=== PATIENT | male | born 1975 | race African-American/Black ===

== ENCOUNTER 2017-09-06 18:49 | Emergency (ER) | payer OTHER ==
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
[2017-09-06 19:53] LABS: PLATELET COUNT 259 10^3/uL (150-400)
[2017-09-07 11:14] VITALS: BP 143/99
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
--- NOTE | 2017-09-07 13:49 | ASMTTCLDSP ---
[facility] Discharge Disposition Disposition: Answers: Discharge If Answers: Yes DISCHARGED: Patient/family given suicide hotline info & SAMHSA brochure? Disposition Notes: Notes: IN CONSULTATION WITH [facility] ED PHYSICIAN, BELIA CARREON MD, AND ON-CALL PSYCHIATRIST, LAURA LEON MD, BOTH CONCURRED THAT PT DOES NOT APPEAR TO MEET 27-65 CRITERIA REQUIRING PSYCHIATRIC HOSPITALIZATION PT DOES NOT APPEAR TO BE AN IMMINENT RISK OF HARM TO SELF/OTHERS/GRAVELY DISABLED DUE TO A MENTAL ILLNESS CONDITION. Discharge Concerns/Recommendations: Notes: Recommended pt. f/u with local MHC at [facility]. Pt does not have an assigned provider. He was last prescribed meds by his Psychiatrist while an inpt at [facility] earlier this month. PT WAS OFFERED VOLUNTARY MENTAL HEALTH ADMISSION YET PT DECLINED. PT STATED COMMITMENT OR ABILITY TO KEEP SELF SAFE, DENIED THOUGHTS OF SELF HARM OR HARM TO OTHERS. PT EXPRESSED A DESIRE TO F/U WITH P. Date Signed: 09/07/2017 01:49 PM Electronically Signed By:Vanita Torres
== END 2017-09-07 11:13 | disposition home or self-care (01) ==
LOC: EEVIPCON 18:49
PROC: GZ11ZZZ Psychological Tests, Personality and Behavioral (ICD-10-PCS; principal; 2017-09-06)
DX: R45.851 Suicidal ideations (principal); I10 Essential (primary) hypertension; F17.200 Nicotine dependence, unspecified, uncomplicated; F19.10 Other psychoactive substance abuse, uncomplicated
CPT/HCPCS: 80305; G0480

== ENCOUNTER 2017-09-10 15:59 | Emergency (ER) | payer OTHER, MEDICAID ==
[~2017-09-10 15:59] MED LIST: LISINOPRIL 5 MG TAB PO SCH
[2017-09-10] MEDS ORDERED: LISINOPRIL 20 MG TAB PO ONE ×2 (16:13→16:17)
--- NOTE | 2017-09-10 16:17 | EDPHY ---
H & P Time Seen by Provider: 09/10/17 16:06 HPI/ROS: Chief Complaint: Hypertension HPI: 42-year-old male who is being seen at the crisis Center for restarting his chronic psychiatric medications. He is noted to be hypertensive there and sent here for medical clearance. Patient states he normally takes lisinopril once a day but has not been able date take his medications for the last week or so. Denies headache. Denies chest pain shortness of breath. States his last alcoholic drink was about 4 days ago. No nausea or vomiting. Currently is without any other complaints at this time. ROS: 10 point Review of Systems is negative except as noted in the HPI. PMH: Hypertension, PTSD, anxiety Social History: No smoking, occasional alcohol, denies other drug use Family History: non-contributory Physical Exam: Gen: Awake, Alert, No Distress HEENT: Nose: no rhinorrhea Eyes: PERRLA, EOMI Mouth: Moist mucosa Neck: Supple, no JVD Chest: nontender, lungs clear to auscultation Heart: S1, S2 normal, no murmur Abd: Soft, non-tender, no guarding Back: no CVA tenderness, no midline tenderness Ext: no edema, non-tender Skin: no rash Neuro: CN II-XII intact, Sensation grossly intact, Strength 5/5 in bilateral upper and lower extremities - Medical/Surgical History Hx Asthma: No Hx Chronic Respiratory Disease: No Hx Diabetes: No Hx Cardiac Disease: No Hx Renal Disease: No Hx Cirrhosis: No Hx Alcoholism: No Hx HIV/AIDS: No Hx Splenectomy or Spleen Trauma: No Other PMH: ptsd,schizophrenia,depression, anxiety,htn. denies surgical history - Social History Smoking Status: Current every day smoker Allergies/Adverse Reactions: No Known Allergies Allergy (Unverified 03/16/12 20:24) Home Medications: Medication Instructions Recorded Lisinopril [Zestril 5 mg (*)] 03/16/12 QUETIAPINE FUMARATE [Seroquel Xr] 300 mg PO 03/16/12 Diazepam 06/15/14 Lisinopril 5 mg PO DAILY #30 tablet 09/10/17 Medical Decision Making ED Course/Re-evaluation: Patient's blood pressure here is 142/104. He is without complaint. I have dosed him with lisinopril here. Will write prescription for the same. He is otherwise medically cleared for the crisis center. Departure - Departure Disposition: Home, Routine, Self-Care Clinical Impression: Hypertension Condition: Good Instructions: Hypertension (ED) Additional Instructions: Follow up with the [facility] in 3-4 days for blood pressure check. Make sure you take her regular medications daily. Return to the emergency department for headache, chest pain, shortness of breath , lightheadedness, fainting, or any other concerns. The patient is medically cleared for crisis Center. Referrals: [facility],. [Clinic] - As per Instructions Prescriptions: Lisinopril 5 mg PO DAILY #30 tablet
[2017-09-10 16:57] LABS: PLATELET COUNT 355 10^3/uL (150-400)
[2017-09-10 17:38] VITALS: BP 144/110
--- NOTE | 2017-09-10 17:39 | ASMTCMCOM ---
CM Note CM Note Notes: Pt presented to the ED from [facility] for high blood pressure. Pt was given Lisinopril while in the ED and also provided a filled prescription via MAP. Pt states he used to be seen at [facility] the [facility] but it has more than a year. This CM offered to call [facility] and get him an appt but pt states he will reach out to them. This CM to follow up with [facility] tomorrow and see if they can reach out to patient and schedule a follow-up. After speaking w/ Scott at [facility] ([phone]), it then was communicated that they were wanting the ED to run blood work and a urine sample for med clearance because they are looking for placement for patient (pt has already been evaluated). ED provider agreeable to this plan; lab results faxed over to [facility] (F: [phone]). Pt discharged and provided a cab voucher back over to [facility] to wait for placement. CM available for further assistance if needed. Date Signed: 09/10/2017 05:38 PM Electronically Signed By:Belkys Ferrell RN
--- NOTE | 2017-09-10 17:42 | ASDISCHSUM ---
Discharge Information Plan Status:Outpatient Psych Referrals Medically Cleared to Leave: Discharge Date:09/10/2017 05:34 PM CM D/C Disposition:Other (Not listed) ADT D/C Disposition:Home, Routine, Self-Care Projected Discharge Date:09/10/2017 05:34 PM Transportation at D/C:Cab Voucher Discharge Delay Reason: Follow-Up Date:09/10/2017 05:34 PM Discharge Slot: Final Diagnosis: Placement Information Patient Contact Information Contact Name:DAGOILEANA Relationship: Address: Home Phone: Work Phone: City: Alternate Phone: State/Zip Code: Email: Financial Information Financial Class:Medicare Primary Plan Desc:MEDICARE OUTPATIENT Primary Plan Number:[id number] Secondary Plan Desc:MEDICAID [place] Secondary Plan Number:[id number] Assessment Information [facility] CM Progress Note CM Note CM Note Notes: Pt presented to the ED from [facility] for high blood pressure. Pt was given Lisinopril while in the ED and also provided a filled prescription via MAP. Pt states he used to be seen at [facility] the [facility] but it has more than a year. This CM offered to call [facility] and get him an appt but pt states he will reach out to them. This CM to follow up with [facility] tomorrow and see if they can reach out to patient and schedule a follow-up. After speaking w/ Scott at [facility] ([phone]), it then was communicated that they were wanting the ED to run blood work and a urine sample for med clearance because they are looking for placement for patient (pt has already been evaluated). ED provider agreeable to this plan; lab results faxed over to [facility] (F: [phone]). Pt discharged and provided a cab voucher back over to [facility] to wait for placement. CM available for further assistance if needed. Date Signed: 09/10/2017 05:38 PM Electronically Signed By:Belkys Ferrell RN Intervention Information Intervention Type:Medication Date of Service:09/10/2017 05:39 PM Patient Type:Emergency Room Staff Member:KIM Ferrell [place] Hours:0.25 Discipline:Solar Installation Foreman Severity: Comment: Intervention Type:Post Acute Communication Date of Service:09/10/2017 05:39 PM Patient Type:Emergency Room Staff Member:KIM Ferrell [place] Hours:0.25 Discipline:Solar Installation Foreman Severity: Comment: Intervention Type:Health Clinic Date of Service:09/10/2017 05:39 PM Patient Type:Emergency Room Staff Member:KIM Ferrell [place] Hours:0.25 Discipline:Solar Installation Foreman Severity: Comment:
== END 2017-09-10 17:34 | disposition home or self-care (01) ==
LOC: EDUNIT#
DX: I10 Essential (primary) hypertension (principal); F17.200 Nicotine dependence, unspecified, uncomplicated
CPT/HCPCS: 80305; G0480